=== PATIENT | male | born 1995 | race Two or more races ===

== ENCOUNTER 2017-07-07 22:41 | Emergency (ER) | payer BC ==
[~2017-07-07] VITALS: Ht 177.8 cm; Wt 62.6 kg
[2017-07-07] MEDS ORDERED: MARIJUANA (22:53)
--- NOTE | 2017-07-07 23:00 | NUR ---
Dr. Gunderson at bedside for MSE.
--- NOTE | 2017-07-07 23:05 | NUR ---
Patient ambulated to ER with steady gait, c/o headache x 1.5 years pain 05/22. Reports he thinks he has a tumor.
[2017-07-07] MEDS ORDERED: ACETAMINOPHEN ES 500 MG TABLET ONE (23:11)
[2017-07-07] MEDS ORDERED: ACETAMINOPHEN ES 500 MG TABLET PO ONE (23:15)
--- NOTE | 2017-07-07 23:15 | NUR ---
Pt out of ER for CT.
--- NOTE | 2017-07-07 23:25 | NUR ---
Pt back to ER from CT.
--- NOTE | 2017-07-08 00:08 | NUR ---
Patient discharged to home in stable conditon. Written and verbal after care instructions given. Patient verbalizes understanding of instructions. Patient ambulated out of ER with steady gait, no acute signs of distress, VSS, all belongings taken.
[2017-07-08 00:09] VITALS: BP 132/89
== END 2017-07-08 00:10 | disposition home or self-care (01) ==
LOC: ER 22:43
DX: R51 Headache (principal); Z79.899 Other long term (current) drug therapy
CPT/HCPCS: 70450; 99284; A4663; A9150